=== PATIENT | female | born 1955 | race Caucasian/White ===

== ENCOUNTER 2016-11-23 01:41 | Emergency (ER) | payer MEDICARE, BC ==
[~2016-11-23 01:41] MED LIST: ADVAIR250 INH; ALLERGY INJECTIONS; ALVESCO160 MCG INH; ASAB PO; ASTELIN NAS; BROVANA15 MCG INH; CALTRA600D PO; CARDCD180 PO; CRESTOR40 MG PO; DIOVAN40 MG PO; FLEXOR PATCH TOP; FLOVENT DISK50 MCG INH; HUMIRA PEN SC; IPRA17AE INH; KAPIDEX60 MG PO; LIDODERM T; LYRICA75 PO; MCZ25 PO; MELATONIN5 M1 PO; MULTIPLE VIT PO; PRIN10 PO; PROAIR HFA INH; PROZAC40 MG PO; REMERON SLTB45 MG PO; REMICADE IV; SINGULAIR1 PO; SPIRIVA INH; SUCR PO; TRAZ100 PO; VENTOLIN HFA INH; VITAMIN B-121000 MC1 SL; VITAMIN E; VOLTAREN1 % TOP; WELLXL300 PO; ZETIA PO; ZOFRAN4 PO; ZOLAIR
[2016-11-23 01:58] LABS: AMPHETAMINES (NOT ORD) NEG (NEG); BARBITURATES (NOT ORDERED NEG (NEG); BENZODIAZEPINES (NOT ORD) NEG (NEG); CANNABINOIDS (THC) NEG (NEG); COCAINE (NOT ORDERED) NEG (NEG); OPIATES NEG (NEG); PHENCYCLIDINE(PCP) NEG (NEG); TRICYCLICS NEG (NEG)
[2016-11-23 02:01] LABS: BASOPHILS 0.1 %; BASOPHILS ABSOLUTE 0.01 10/3/uL (0.0-0.16); EOSINOPHILS 0.3 %; EOSINOPHILS ABSOLUTE 0.04 10/3/uL (0.0-0.53); HEMATOCRIT 36.2 % (36.0-48.0); HEMOGLOBIN 11.6 g/dL (12.0-16.0); IMMATURE GRANULOCYTES 0.7 %; IMMATURE GRANULOCYTES ABSOLUTE 0.09 10/3/uL (0.0-0.11); LYMPHOCYTES 9.4 %; LYMPHOCYTES ABSOLUTE 1.29 10/3/uL (0.67-4.30); MEAN CORPUSCULAR HEMOGLOB 29.8 pg (26.0-34.0); MEAN CORPUSCULAR VOLUME 93.1 fL (80-100); MEAN PLATELET VOLUME 9.6 fL (9.2-13.0); MONOCYTES 9.6 %; MONOCYTES ABSOLUTE 1.32 10/3/uL (0.21-1.20); NEUTROPHILS 79.9 %; NEUTROPHILS ABSOLUTE 11.01 10/3/uL (2.02-8.40); RBC DISTRIBUTION WIDTH 16.1 % (12.0-16.0); RED CELL COUNT 3.89 10/6/uL (4.0-5.6)
[2016-11-23 02:02] LABS: ER CBC TAT 0 Hrs 07 MinsNP; MANUAL DIFF NO %; PLATELET COUNT 241 10/3/uL (150-400); WHITE BLOOD CELLS 13.8 10/3/uL (4.5-10.5)
[2016-11-23 02:18] LABS: ACETAMINOPHEN LEVEL (TYLENOL) 11.5 MCG/ML (10.0-20.0); CALCIUM, SERUM 8.1 MG/DL (8.5-10.4); CHLORIDE, SERUM 102 MMOL/L (96-112); CO2 (CARBON DIOXIDE) 29 MMOL/L (24-34); CREATININE 1.13 MG/DL (0.55-1.02); GFR AFRICAN AMERICAN 61 ML/MIN (>=60); GFR NON AFRICAN AMERICAN 52 ML/MIN (>=60); SALICYLATE 10.2 MG/DL (-); SGOT(AST) 20 U/L (5-40); SGPT(ALT) 30 U/L (5-65); SODIUM, SERUM 140 MMOL/L (135-148); TOTAL BILIRUBIN 0.2 MG/DL (0-1.2); TOTAL PROTEIN 7.4 G/DL (6.0-8.5)
[2016-11-23 02:21] LABS: A/G RATIO 0.9 (0.7-1.9); ALBUMIN 3.5 G/DL (3.5-5.0); ALCOHOL < 10 MG/DL (0); ALKALINE PHOSPHATASE 120 U/L (45-117); BUN (BLOOD UREA NITROGEN) 20 MG/DL (6-23); GLOBULIN 3.9 G/DL (2.5-4.1); GLUCOSE, SERUM 140 MG/DL (60-99); POTASSIUM, SERUM 2.9 MMOL/L (3.5-5.3)
[2016-11-23 07:37] LABS: BE (BASE EXCESS) -1.2 MEQ/L (0 +/- 2.5); HCO3 (ACTUAL BICARBONATE) 23.2 MEQ/L (23-27); INSTRUMENT SERIAL # 8087; PCO2 (CO2 TENSION) 38 MMHG (35-45); PO2 (O2 TENSION) 80 MMHG (79-93)
[2016-11-23 07:38] LABS: ALLENS TEST Pos; HEMOBLOGIN CONTENT 12.3 G/DL (12-16); METHEMOGLOBIN 0.3 % (0-3); O2 CONTENT 16.4 VOL% (18-24); SAMPLE Arterial
[2017-02-13] MEDS ORDERED: PROAIRRESP INH (15:07)
[2017-02-13] MEDS ORDERED: CRESTOR40 MG PO (15:16)
== END 2016-11-23 21:01 ==
LOC: ER 01:41
PROVIDERS: Emergency Medicine; Specialist
DX: T50.992A Poisoning by other drugs, medicaments and biological substances, intentional self-harm, initial encounter (principal); E11.9 Type 2 diabetes mellitus without complications; I10 Essential (primary) hypertension; Z88.1 Allergy status to other antibiotic agents; Z88.2 Allergy status to sulfonamides; Z88.8 Allergy status to other drugs, medicaments and biological substances; Z79.82 Long term (current) use of aspirin; Z79.899 Other long term (current) drug therapy; R45.851 Suicidal ideations; E87.6 Hypokalemia; E78.5 Hyperlipidemia, unspecified; F41.9 Anxiety disorder, unspecified; F32.9 Major depressive disorder, single episode, unspecified; Z96.659 Presence of unspecified artificial knee joint; M79.7 Fibromyalgia
CPT/HCPCS: 36600; 71010; 80053; 80305; 80307; 82805; 84132; 85025; 93005; 96374; 99285; A9270-GY

== ENCOUNTER 2016-12-01 17:08 | Inpatient (IN) | payer MEDICARE, BC ==
--- NOTE | ~2016-12-01 | HP ---
History And Physical [id number] [place]. [address] NAME: JUAQUIN SUH : 55 STATUS : ADM IN [facility]#: [id number] AGE: 61 ADM/REG DATE : 12/01/16 MR#: [id number] REPORT SERV DATE: 12/01/16 DICTATED BY: MARY MALIK DATE: 12/01/16 REPORT STATUS : Draft TRANSCRIBED BY: MODL DATE: 12/01/16 DATE OF ADMISSION: 12/01/2016 CHIEF COMPLAINT: Right upper extremity DVT. HISTORY OF PRESENT ILLNESS: The patient is a 61-year-old female. She was transferred from the [facility] for higher level of care. The patient had been several days inpatient at a local psychiatric facility for depression and suicide attempt with overdose. She had complained of right upper extremity pain and swelling. She had a D-dimer which was positive, transferred to emergency department. A right axillary DVT was noted. The patient had a port placed in that arm on that side in June for infusions for alpha-1 antitrypsin deficiency. She complained of some swelling, pain, and some mild shortness of breath. She was transferred here on a heparin drip. She is currently hemodynamically stable, and otherwise, asymptomatic. PAST MEDICAL HISTORY: Significant for alpha-1 antitrypsin deficiency. She states that she is getting Prolastin-C at [facility] every Monday. She also has a history of hypertension, hyperlipidemia, depression, and asthma. She has had a prior DVT and PE in the past. She took anticoagulation for several years. Osteoarthritis, hyper and hypoglycemia, and psoriatic arthritis. PAST SURGICAL HISTORY: She has had bilateral knees, inguinal hernia, cholecystectomy, tonsils and adenoids, hysterectomy, oophorectomy, spinal lumbar and cervical surgery, and she had a left upper lobe lobectomy from mass many years ago. CURRENT MEDICATIONS: Her pharmacy list is pending. ALLERGIES: EXTENSIVE, PLEASE SEE LIST. FAMILY HISTORY: Both parents . Father had coronary. Mother had dementia and breast cancer. SOCIAL HISTORY: Nondrinker and nonsmoker. REVIEW OF SYSTEMS: HEENT: Negative. CARDIOVASCULAR: No chest pain. PULMONARY: Slight shortness of breath. GI: No complaints. : No complaints. The remainder of her 14-point review of systems is negative. PHYSICAL EXAMINATION: VITAL SIGNS: BP 139/64, temp 99, pulse 101, respirations 18, and sat 96%. GENERAL: She is awake, alert, oriented, pleasant, and in no acute distress. HEENT: Normocephalic and atraumatic. Sclerae are nonicteric. NECK: Supple. History And Physical [address] [place]. [address] NAME: JUAQUIN SUH : 55 STATUS : ADM IN [facility]#: [id number] AGE: 61 ADM/REG DATE : 12/01/16 MR#: [id number] REPORT SERV DATE: 12/01/16 DICTATED BY: MARY MALIK DATE: 12/01/16 REPORT STATUS : Draft TRANSCRIBED BY: SUNITA DATE: 12/01/16 HEART: Regular rate and rhythm. LUNGS: Clear to auscultation. ABDOMEN: Nontender and obese. EXTREMITIES: Lower extremities, no clubbing, cyanosis, or edema. Right upper extremity does note swelling in the forearm and hand. LABORATORY DATA: Lab per transferring facility; D-dimer was 1.82. White count 7.7, H and H 10.4 and 33.7, and platelets 208. Sodium 139, potassium 4, chloride 102, CO2 32, BUN and creatinine are 15 and 1 with a glucose of 109. Study reports forwarded note a negative chest x-ray and a right upper extremity ultrasound showing a right axillary DVT. ASSESSMENT: Upper extremity deep venous thrombosis. PLAN: 1. The patient has been admitted. 2. We will continue her heparin. 3. We will consult Dr. Sims for recommendations on the line given her current symptoms, he placed the port previous. 4. We will ask Psych to evaluate her. We will place her on suicide watch in the sitter given her suicide attempt. I will review home medications and prescribe appropriately. ABHISHEKF/SUNITA Mary Malik M.D. / [id number] CC: Mary Malik M.D.
--- NOTE | ~2016-12-01 | DS ---
Discharge Summary [address] [place]. [address] NAME: JUAQUIN SUH : 55 STATUS : ADM IN [facility]#: [id number] AGE: 61 ADM/REG DATE : 12/01/16 MR#: [id number] REPORT SERV DATE: 12/03/16 DICTATED BY: MARY MALIK DATE: 12/03/16 REPORT STATUS : Draft TRANSCRIBED BY: MODL DATE: 12/03/16 ADMISSION DATE: 12/01/2016 DISCHARGE DATE: 12/03/2016 FINAL HOSPITAL DIAGNOSES: 1. Right upper extremity deep venous thrombosis. 2. Chronic indwelling port. 3. Alpha 1 antitrypsin deficiency. 4. Hospitalization for suicide attempt by overdose. CONSULTATIONS: 1. Dr. Garza, Psychiatry. 2. Vascular Surgery. PROCEDURES: None. CURRENT PHYSICAL FINDINGS AND HISTORY OF PRESENT ILLNESS: Please see dictated H and P by myself on the . In brief, the patient is a 61-year-old female who was transferred from [facility] for upper extremity DVT and elevated D-dimer. Vital signs at the time of admission; BP was 128/68, temperature was 98.2, and she has been afebrile during her hospital stay. Heart rates have been in the 70s to 80s. Lab work showed a normal BMP on admission. H and H were 10.6 and 32.8, otherwise CBC was unremarkable. HOSPITAL COURSE: The patient was admitted. Outside records were reviewed. The patient was noted to have the acute DVT and a port placed. She was hemodynamically stable. She was not hypoxic. Home medications were reviewed and ordered appropriately. Because of her admission to a psych facility, Dr. Garza was consulted. He saw her the following day and discontinued her sitter and suicide precautions. Vascular was consulted as the patient had a port placed by them. It was not certain whether that port would need to be removed per Vascular's opinion. No anticoagulation was recommended. She was initially placed on IV heparin. On the date of discharge, she was given her anticoagulant choices and wished to be on Eliquis. Plan per Vascular Surgery was to continue anticoagulation while the port was needed. The patient voiced understanding, had no further complaints and was discharged in stable condition. DISPOSITION: She is going to be discharged back to her psych facility for discharge from there. As already mentioned, suicide precautions were discontinued. MEDICATIONS: Acetylcysteine 600 b.i.d., aspirin 81, Astelin nasal spray, Wellbutrin 300 at a.m. and 150 at p.m., vitamin D 5000, Cardizem 180 b.i.d., Lexapro 10, Zetia 10, Flonase nasal spray, folic acid, Zyrtec 10, Antivert 25 at h.s., melatonin 10 at h.s., methotrexate 7.5 on Wednesdays, Singulair 10, vitamin E 400, Desyrel 200 at h.s., Detrol LA 4, tiotropium Respimat 2 puffs daily, Klonopin 0.5 b.i.d., Apresoline 25 q.8, Alvesco 160 as directed, ProAir inhaler, Prolastin q.7 days, Flovent Diskus 1 puff twice a day 250, triamcinolone cream, Centrum, turmeric, Nexium 40, Diovan and hydrochlorothiazide 160/12.5, Crestor 40, and Proventil 0.5. Prescriptions were written by myself for Eliquis 5 mg two p.o. b.i.d. x7 Discharge Summary [address] [address] NAME: JUAQUIN SUH : 55 STATUS : ADM IN [facility]#: [id number] AGE: 61 ADM/REG DATE : 12/01/16 MR#: [id number] REPORT SERV DATE: 12/03/16 DICTATED BY: MARY MALIK DATE: 12/03/16 REPORT STATUS : Draft TRANSCRIBED BY: MODL DATE: 12/03/16 days then 1 p.[address]. [address]i.d. Prescriptions for Dr. Garza were trazodone 200, Wellbutrin XL 150 and 300, Lexapro 10, and Klonopin 0.5 b.i.d. ABHISHEKF/SUNITA Mary Malik M.D. / [id number] CC: Mary Malik M.D. Isela Helm MD
--- NOTE | ~2016-12-01 | DS ---
Discharge Summary [facility] [address] [place]. [address] NAME: JUAQUIN SUH : 55 STATUS : ADM IN PAT#: [id number] AGE: 61 ADM/REG DATE : 12/01/16 MR#: [id number] REPORT SERV DATE: 12/04/16 DICTATED BY: MARY MALIK DATE: 12/04/16 REPORT STATUS : Draft TRANSCRIBED BY: MODHussain DATE: 12/04/16 ADMISSION DATE: 12/01/2016 DISCHARGE DATE: ADDENDUM: To discharge summary. Addendum as follows: The patient was to be discharged to her psychiatric facility on 12/03/2016. The patient requested transfer back to the psychiatric center for prescription refills and outpatient referrals. She was not able to be discharged to the psychiatric facility and she has an demonstrator sales appointment for her alpha-1 antitrypsin treatment on Monday morning that she is reluctant to miss as she missed one treatment when she was in such facility. Dr. Garza had seen her here and did clear her to home if that was her wish. She had prescriptions left on the chart for her psychiatric medications. The patient is comfortable with this. She is judged not to be suicidal at this time. She is progressing well with her treatment of the upper extremity DVT and tolerating her anticoagulants well. DISPOSITION: The patient is discharged to home instead of the psychiatric facility with no change in her medications. LLIA/SUNITA Mary Malik M.D. / [id number] CC: Keith Garcia MD
--- NOTE | ~2016-12-01 | CN ---
Consultation Report [facility] [address]. [address] NAME: JUAQUIN SUH : 55 STATUS : ADM IN PAT#: [id number] AGE: 61 ADM/REG DATE : 12/01/16 MR#: [id number] REPORT SERV DATE: 12/02/16 DICTATED BY: OZZY ARGUETA DATE: 12/02/16 REPORT STATUS : Draft TRANSCRIBED BY: MODHussain DATE: 12/02/16 DATE OF CONSULTATION: 12/02/2016 I reviewed the patient's current record and also records which were sent from [facility]. HISTORY OF PRESENT ILLNESS: She was admitted with deep vein thrombosis of the right arm. I was consulted to address depression. PAST PSYCHIATRIC HISTORY: She was a patient at [facility], also known as [facility], psychiatry section, since 11/23/2016. She was admitted after she overdosed on Remeron. They were getting ready to discharge her from the hospital when they noticed that she had a painful and swollen right arm. She gives a 16-year history of recurring depression. She said her depression started after she was with her daughter, and she developed severe eclampsia in the last trimester. She had some seizures at that time. Shortly after giving , her daughter . Since that time, she has suffered from recurring depression. She has had multiple suicide attempts by overdose. She has had multiple psychiatric admissions. Most recently, she was followed by a psychiatrist, tato Hwang at [facility]. She also was seeing a psychotherapist at a mental health clinic in [place], [place]. SOCIAL HISTORY: Her son, [id number], and grandchildren live with her. She was and one time. FAMILY HISTORY: A number of members with alcoholism in her mother's family. No history of bipolar disorder in the family. MENTAL STATUS: She was awake and alert. Her mood was euthymic. Her affect was full and appropriate. She had no suicidal motivation. She said "this is the best I have felt in a long time." Her thinking was logical. She had no delusions. She had no hallucinations. She was oriented to time, place, and person. She demonstrated good recent and remote memory. DIAGNOSIS: Major depressive disorder, recurrent. RECOMMENDATIONS: We should continue the trazodone, Wellbutrin, Klonopin, and Lexapro as was prescribed at [facility]. I will be available for followup on 12/06/2016, if she is still in the hospital. If she needs to be discharged before then, she can be discharged to home, and she can continue to follow up with her current psychiatric providers. AMAYA/SUNITA Consultation Report [facility] [address] [place]. [address] NAME: JUAQUIN SUH : 55 STATUS : ADM IN PAT#: [id number] AGE: 61 ADM/REG DATE : 12/01/16 MR#: [id number] REPORT SERV DATE: 12/02/16 DICTATED BY: OZZY ARGUETA DATE: 12/02/16 REPORT STATUS : Draft TRANSCRIBED BY: SUNITA DATE: 12/02/16 Ozzy Argueta M.D. / [id number] CC: Denny Whitney M.D.
[2016-12-01] MEDS ORDERED: ALVESCO 160 MCG PO ×2 (18:49→18:50)
[2016-12-01] MEDS ORDERED: ASTELIN NAS (18:50)
[2016-12-01] MEDS ORDERED: PROLASTIN IV (18:51)
[2016-12-01] MEDS ORDERED: DETROLLA4 PO (18:51)
[2016-12-01] MEDS ORDERED: DILT-XR180 MG PO (18:51)
[2016-12-01] MEDS ORDERED: PROAIR HFA INH (18:51)
[2016-12-01] MEDS ORDERED: MCZ25 PO (18:52)
[2016-12-01] MEDS ORDERED: VITE PO (18:52)
[2016-12-01] MEDS ORDERED: FLOVENT DISK250 MCG INH (18:52)
[2016-12-01] MEDS ORDERED: SINGULAIR1 PO (18:52)
[2016-12-01] MEDS ORDERED: ASAB PO (18:53)
[2016-12-01] MEDS ORDERED: CENTRUM PO (18:53)
[2016-12-01] MEDS ORDERED: TRIAMCINOLONE C80 GM TOP (18:53)
[2016-12-01] MEDS ORDERED: NEXIUM40 PO (18:54)
[2016-12-01] MEDS ORDERED: NAC600 MG PO (18:54)
[2016-12-01] MEDS ORDERED: ZETIA PO (18:54)
[2016-12-01] MEDS ORDERED: TURMERIC PO (18:54)
[2016-12-01] MEDS ORDERED: ZYRTEC ALLGY10 MG PO (18:54)
[2016-12-01] MEDS ORDERED: EFFEXXR75 PO (18:55)
[2016-12-01] MEDS ORDERED: APRES25 PO (18:56)
[2016-12-01] MEDS ORDERED: FLONASE NAS (18:56)
[2016-12-01] MEDS ORDERED: DIOVAN HC1 PO (18:56)
[2016-12-01] MEDS ORDERED: D 5000 PO (18:56)
[2016-12-01] MEDS ORDERED: CRESTOR40 MG PO (18:57)
[2016-12-01] MEDS ORDERED: MTX2.5 PO (18:57)
[2016-12-01] MEDS ORDERED: MELATONIN10 M2 PO (18:58)
[2016-12-01] MEDS ORDERED: STIOLTO RESPIMAT4 GM INH (18:58)
[2016-12-01] MEDS ORDERED: FOLIC PO (18:58)
[2016-12-01] MEDS ORDERED: ALBUTEROL5 INH (19:01)
[2016-12-01] MEDS ORDERED: PROZAC PO (19:02)
[2016-12-02 06:10] LABS: CALCIUM, SERUM 8.5 MG/DL (8.5-10.4); CHLORIDE, SERUM 103 MMOL/L (96-112); CO2 (CARBON DIOXIDE) 30 MMOL/L (24-34); CREATININE 0.86 MG/DL (0.55-1.02); GFR AFRICAN AMERICAN 85 ML/MIN (>=60); GFR NON AFRICAN AMERICAN 73 ML/MIN (>=60); GLUCOSE, SERUM 115 MG/DL (60-99); POTASSIUM, SERUM 3.4 MMOL/L (3.5-5.3); SODIUM, SERUM 143 MMOL/L (135-148)
[2016-12-02 06:12] LABS: BUN (BLOOD UREA NITROGEN) 16 MG/DL (6-23)
[2016-12-02 07:22] LABS: BASOPHILS 0.2 %; BASOPHILS ABSOLUTE 0.01 10/3/uL (0.0-0.16); EOSINOPHILS 2.1 %; EOSINOPHILS ABSOLUTE 0.13 10/3/uL (0.0-0.53); HEMATOCRIT 32.8 % (36.0-48.0); HEMOGLOBIN 10.6 g/dL (12.0-16.0); IMMATURE GRANULOCYTES 0.2 %; IMMATURE GRANULOCYTES ABSOLUTE 0.01 10/3/uL (0.0-0.11); LYMPHOCYTES 36.7 %; LYMPHOCYTES ABSOLUTE 2.26 10/3/uL (0.67-4.30); MEAN CORPUS HGB CONC 32.3 g/dL (32.0-36.0); MEAN CORPUSCULAR HEMOGLOB 29.7 pg (26.0-34.0); MEAN CORPUSCULAR VOLUME 91.9 fL (80-100); MEAN PLATELET VOLUME 10.7 fL (9.2-13.0); MONOCYTES 9.6 %; MONOCYTES ABSOLUTE 0.59 10/3/uL (0.21-1.20); NEUTROPHILS 51.2 %; NEUTROPHILS ABSOLUTE 3.16 10/3/uL (2.02-8.40); PLATELET COUNT 195 10/3/uL (150-400); RBC DISTRIBUTION WIDTH 16.8 % (12.0-16.0); RED CELL COUNT 3.57 10/6/uL (4.0-5.6)
[2016-12-02 07:30] LABS: MANUAL DIFF NO %; WHITE BLOOD CELLS 6.2 10/3/uL (4.5-10.5)
[2016-12-03 01:32] LABS: BUN (BLOOD UREA NITROGEN) 15 MG/DL (6-23); CALCIUM, SERUM 9.1 MG/DL (8.5-10.4); CHLORIDE, SERUM 101 MMOL/L (96-112); CO2 (CARBON DIOXIDE) 31 MMOL/L (24-34); CREATININE 0.93 MG/DL (0.55-1.02); GFR AFRICAN AMERICAN 77 ML/MIN (>=60); GFR NON AFRICAN AMERICAN 66 ML/MIN (>=60); GLUCOSE, SERUM 117 MG/DL (60-99); POTASSIUM, SERUM 3.6 MMOL/L (3.5-5.3); SODIUM, SERUM 142 MMOL/L (135-148)
[2016-12-04] MEDS ORDERED: ELIQUIS 5 MG TAB5 MG PO ×2 (15:39→15:40)
[2016-12-04] MEDS ORDERED: WELLXL300 PO (15:41)
[2016-12-04] MEDS ORDERED: TRAZ100 PO (15:41)
[2016-12-04] MEDS ORDERED: LEXAPRO10 PO (15:42)
[2016-12-04] MEDS ORDERED: WELLXL150 PO (15:42)
[2016-12-04] MEDS ORDERED: KLONO1 PO (15:43)
[2017-02-13] MEDS ORDERED: PROAIRRESP INH (15:07)
[2017-02-13] MEDS ORDERED: CRESTOR40 MG PO (15:16)
== END 2016-12-04 17:21 | disposition home or self-care (01) | DRG 300 ==
LOC: 4SO 17:08
PROVIDERS: Internal Medicine
DX: I82.A11 Acute embolism and thrombosis of right axillary vein (principal); F33.9 Major depressive disorder, recurrent, unspecified; E88.01 Alpha-1-antitrypsin deficiency; I10 Essential (primary) hypertension; J45.909 Unspecified asthma, uncomplicated; M19.90 Unspecified osteoarthritis, unspecified site; Z86.711 Personal history of pulmonary embolism; L40.50 Arthropathic psoriasis, unspecified; Z91.5 Personal history of self-harm; Z79.82 Long term (current) use of aspirin; Z79.899 Other long term (current) drug therapy; G47.33 Obstructive sleep apnea (adult) (pediatric)
CPT/HCPCS: 80048; 83735; 84132; 85025; 85730; 94640; A9270-GY

== ENCOUNTER 2017-02-14 11:09 | Day surgery (SDC) | payer MEDICARE, BC ==
[2017-02-06 13:51] LABS: BASOPHILS 0.4 %; BASOPHILS ABSOLUTE 0.02 10/3/uL (0.0-0.16); EOSINOPHILS 3.1 %; EOSINOPHILS ABSOLUTE 0.17 10/3/uL (0.0-0.53); HEMATOCRIT 31.7 % (36.0-48.0); HEMOGLOBIN 10.3 g/dL (12.0-16.0); IMMATURE GRANULOCYTES 0.4 %; IMMATURE GRANULOCYTES ABSOLUTE 0.02 10/3/uL (0.0-0.11); LYMPHOCYTES 28.7 %; LYMPHOCYTES ABSOLUTE 1.58 10/3/uL (0.67-4.30); MEAN CORPUS HGB CONC 32.5 g/dL (32.0-36.0); MEAN CORPUSCULAR HEMOGLOB 30.7 pg (26.0-34.0); MEAN CORPUSCULAR VOLUME 94.6 fL (80-100); MEAN PLATELET VOLUME 10.3 fL (9.2-13.0); MONOCYTES 9.5 %; MONOCYTES ABSOLUTE 0.52 10/3/uL (0.21-1.20); NEUTROPHILS 57.9 %; NEUTROPHILS ABSOLUTE 3.19 10/3/uL (2.02-8.40); PLATELET COUNT 240 10/3/uL (150-400); RBC DISTRIBUTION WIDTH 15.9 % (12.0-16.0); RED CELL COUNT 3.35 10/6/uL (4.0-5.6); WHITE BLOOD CELLS 5.5 10/3/uL (4.5-10.5)
[2017-02-06 13:54] LABS: MANUAL DIFF NO %
[2017-02-06 14:16] LABS: BUN (BLOOD UREA NITROGEN) 16 MG/DL (6-23); CALCIUM, SERUM 9.1 MG/DL (8.5-10.4); CHLORIDE, SERUM 105 MMOL/L (96-112); CO2 (CARBON DIOXIDE) 30 MMOL/L (24-34); CREATININE 1.18 MG/DL (0.55-1.02); GFR AFRICAN AMERICAN 58 ML/MIN (>=60); GFR NON AFRICAN AMERICAN 50 ML/MIN (>=60); GLUCOSE, SERUM 133 MG/DL (60-99); POTASSIUM, SERUM 4.3 MMOL/L (3.5-5.3); SODIUM, SERUM 143 MMOL/L (135-148)
--- NOTE | ~2017-02-14 | OP ---
Record Of Operation [facility] [address] [place]. [address] NAME: JUAQUIN SUH : 55 STATUS : [facility]#: [id number] AGE: 61 ADM/REG DATE : 02/14/17 MR#: [id number] REPORT SERV DATE: 02/14/17 DICTATED BY: ANDERS SHARP DATE: 02/14/17 REPORT STATUS : Draft TRANSCRIBED BY: MODHussain DATE: 02/14/17 DATE OF PROCEDURE: 02/14/2017 PREOPERATIVE DIAGNOSES: 1. Recurrent left cubital tunnel syndrome despite previous cubital tunnel release. 2. Left ulnar tunnel syndrome (ulnar nerve compression above the elbow). 3. Left carpal tunnel syndrome. PROCEDURES: 1. Left cubital tunnel, repeat in situ release. 2. Left ulnar tunnel release (release of ulnar nerve at Guyon's canal). 3. Left carpal tunnel release. PHYSICIAN: Anders Sharp M.D. WARE TESTER: Víctor. ANESTHESIA: General. ESTIMATED BLOOD LOSS: Less than 2 mL. COMPLICATIONS: None. DISPOSITION: The patient tolerated the procedure well was brought to recovery room in stable condition. PROCEDURE NOTE: The patient brought to the operating room and placed in a supine position, after general anesthesia was administered. A pneumatic tourniquet was placed around the left proximal arm and the left upper extremity. Distal to the tourniquet was prepped and draped in usual sterile manner. A surgical timeout was performed, all were in agreement. An Esmarch was then used to exsanguinate the extremity. Cubital tunnel release was carried out by taking a 15-blade scalpel making a 6-8 cm longitudinal incision overlying the previous incision. After the skin was incised, blunt and sharp dissection was carried out and with the help of palpation the ulnar nerve was palpated through the scar. Carefully the nerve was decompressed by incising the scar and after freeing up the nerve from its most proximal to its most distal borders of the incision and a gloved finger was placed into each end of the wound and the nerve was noted to be further decompressed both proximally and distally several centimeters from the incision. Afterwards, the wound was irrigated and skin was closed with deep and running Monocryl suture. Ulnar and carpal tunnel release were carried out through a single incision. A 15-blade scalpel was used to make a zigzag incision starting 1 cm proximal to the volar wrist crease overlying Guyon's canal. After the skin was incised, starting at the volar wrist crease, the incision was more midline in line with the ring finger. The Record Of Operation [facility] [address] [place]. [address] NAME: JUAQUIN SUH : 55 STATUS : [facility]#: [id number] AGE: 61 ADM/REG DATE : 02/14/17 MR#: [id number] REPORT SERV DATE: 02/14/17 DICTATED BY: ANDERS SHARP DATE: 02/14/17 REPORT STATUS : Draft TRANSCRIBED BY: SUNITA DATE: 02/14/17 incision was brought just proximal to the proximal palmar crease and through this incision, blunt and sharp dissection was carried out first ulnarly. The fibrous bands and palmaris brevis overlying Guyon's canal was released and then and in doing so, the ulnar nerve was decompressed. Care was taken to protect the ulnar nerve and artery during this dissection and after adequate decompression, attention was then directed to the carpal tunnel release. Carpal tunnel release was carried out by taking a 15-blade scalpel making a longitudinal incision across the entire transverse carpal ligament just radial to the hook of the hamate. After adequate decompression was noted, the wound was irrigated and skin was closed with deep and running Monocryl suture. Steri-Strips were applied to each site. Bandage was applied to each site and the patient was then ready to be taken out of general anesthesia, having tolerated the procedure quite well. SUNITA/SUNITA Anders Sharp M.D. / [id number] CC: Keith Guthrie MD
[~2017-02-14 11:09] MED LIST changes: +ALBUTEROL5 INH; +ALVESCO 160 MCG PO; +APRES25 PO; +CENTRUM PO; +D 5000 PO; +DETROLLA4 PO; +DILT-XR180 MG PO; +DIOVAN HC1 PO; +EFFEXXR75 PO; +ELIQUIS 5 MG TAB5 MG PO; +FLONASE NAS; +FLOVENT DISK250 MCG INH; +FOLIC PO; +KLONO1 PO; +LEXAPRO10 PO; +MELATONIN10 M2 PO; +MTX2.5 PO; +NAC600 MG PO; +NEXIUM40 PO; +PROAIRRESP INH; +PROLASTIN IV; +PROZAC PO; +STIOLTO RESPIMAT4 GM INH; +TRIAMCINOLONE C80 GM TOP; +TURMERIC PO; +VITE PO; +WELLXL150 PO; +ZYRTEC ALLGY10 MG PO
== END 2017-02-14 18:20 | disposition home or self-care (01) ==
LOC: SDC 11:09
PROVIDERS: Orthopaedic Surgery Hand Surgery
PROC: 01N50ZZ Release Median Nerve, Open Approach (ICD-10-PCS; 2017-02-14)
PROC: 01N40ZZ Release Ulnar Nerve, Open Approach (ICD-10-PCS; principal; 2017-02-14 12:30)
PROC: 01N40ZZ Release Ulnar Nerve, Open Approach (ICD-10-PCS; 2017-02-14 12:30)
DX: G56.22 Lesion of ulnar nerve, left upper limb (principal); G56.02 Carpal tunnel syndrome, left upper limb; G47.33 Obstructive sleep apnea (adult) (pediatric); I12.9 Hypertensive chronic kidney disease with stage 1 through stage 4 chronic kidney disease, or unspecified chronic kidney disease; E88.01 Alpha-1-antitrypsin deficiency; E11.22 Type 2 diabetes mellitus with diabetic chronic kidney disease; N18.9 Chronic kidney disease, unspecified; J45.909 Unspecified asthma, uncomplicated; M79.7 Fibromyalgia; M19.90 Unspecified osteoarthritis, unspecified site; K21.9 Gastro-esophageal reflux disease without esophagitis; K59.00 Constipation, unspecified; F41.9 Anxiety disorder, unspecified; F32.9 Major depressive disorder, single episode, unspecified; E66.01 Morbid (severe) obesity due to excess calories; Z68.42 Body mass index [BMI] 45.0-49.9, adult; Z86.718 Personal history of other venous thrombosis and embolism; Z99.89 Dependence on other enabling machines and devices; Z98.1 Arthrodesis status; Z88.1 Allergy status to other antibiotic agents; Z88.2 Allergy status to sulfonamides; Z88.8 Allergy status to other drugs, medicaments and biological substances; Z79.01 Long term (current) use of anticoagulants; Z79.82 Long term (current) use of aspirin; Z79.51 Long term (current) use of inhaled steroids; Z79.899 Other long term (current) drug therapy; Z98.41 Cataract extraction status, right eye; Z98.42 Cataract extraction status, left eye; Z96.1 Presence of intraocular lens; Z90.89 Acquired absence of other organs; Z98.890 Other specified postprocedural states; Z96.653 Presence of artificial knee joint, bilateral; Z90.49 Acquired absence of other specified parts of digestive tract; Z90.710 Acquired absence of both cervix and uterus
CPT/HCPCS: 80048; 82962; 85025; 93005; J2250; J2405; J3010; J3370